=== PATIENT | male | born 2000 | race Two or more races ===

== ENCOUNTER 2024-08-27 10:24 | Emergency (ER) | payer MEDICAID, OTHER ==
[~2024-08-27] VITALS: Ht 185.4 cm; Wt 91.0 kg
[2024-08-27 12:15] VITALS: BP 122/81; PULSE 89; RESP 20; TEMP 98.9; O2SAT 99
--- NOTE | 2024-08-27 12:46 | ED.PDOC ---
Eye-HPI HPI Comments A 24 YEAR OLD MALE PRESENTS TO THE ED WITH COMPLAINT OF SORE THROAT AND LEFT EAR PAIN. PATIENT STATES HE HAS BEEN EXPERIENCING A SORE THROAT, LEFT EAR PAIN, COUGH, NASAL CONGESTION, AND BODY ACHES FOR THE PAST 5 DAYS. PATIENT DENIES SHORTNESS OF BREATH, CHEST PAIN, ABDOMINAL PAIN, NAUSEA, VOMITING, HEADACHE, OR OTHER COMPLAINTS. NO OTHER SYMPTOMS OR MODIFYING FACTORS AT THIS TIME. PATIENT IS ALERT, ORIENTED X 4, AND HAS STEADY GAIT. Chief Complaint: Flu like Time Seen by MD: 11:17 Primary Care Provider: LUNA Reviewed Notes: Nurses Notes, Medications, Allergies Allergies: Coded Allergies: NO KNOWN ALLERGIES (Unverified , 08/27/24) Home Meds Active Scripts Lidocaine HCl (Mouth-Throat) (Lidocaine HCl Viscous) 2 % Dianna, 5 ML MT TID, #100 ML Prov:KENDAL SUN 08/27/24 Amoxicillin Trihydrate (Amoxicillin) 875 Mg Tab, 1 TAB PO BID, #20 TAB Prov:KENDAL SUN 08/27/24 Information Source: Patient Mode of Arrival: Ambulatory Timing: Days Duration: Since onset, Days Prehospital treatment: None Quality: Pain, Red Lids: Normal Conjunctiva: Normal Cornea: Normal Pupils: Normal EOM: Normal Fundus: Normal Slit lamp exam: Normal Anterior chamber: Normal Mouth Location: Pharynx Mouth: Normal ENT Ear Exam: Normal, Red, Bulging, Normal Nose: Normal Sinuses: Normal Oropharynx: Tonsillar hypertrophy, Red Onset: Spontaneous Throat Exposed to: None History of: None Last Tetanus: Unknown Modifying factors: Nothing Associated signs and symptoms: Nasal Symptoms, Sore Throat, Ear Pain Past Medical History PAST MEDICAL HISTORY: Denies Surgical History: Denies all surgeries Family History Family History: Reviewed,noncontributory to illness Social History Smoker: Non-Smoker Alcohol: Denies ETOH Use Drugs: Denies Drug Use Lives In: Home Constitutional: denies: chills, diaphoresis, fatigue, fever, malaise, sweats, weakness, others EENTM: reports: ear pain (LEFT EAR PAIN), nose congestion, throat pain, throat swelling; denies: blurred vision, double vision, ear bleeding, ear discharge, ear drainage, ear ringing, eye pain, eye redness, hearing loss, mouth pain, mouth swelling, nasal discharge, nose bleeding, nose pain, photophobia, tearing, voice changes, others Respiratory: reports: cough; denies: hemoptysis, orthopnea, SOB at rest, shortness of breath, SOB with excertion, stridor, wheezing, others Cardiovascular: denies: chest pain, dizzy spells, diaphoresis, Dyspnea on exertion, edema, irregular heart beat, left arm pain, lightheadedness, palpitations, PND, syncope, others Gastrointestinal: denies: abdomen distended, abdominal pain, blood streaked bowels, constipated, diarrhea, dysphagia, difficulty swallowing, hematemesis, melena, nausea, poor appetite, poor fluid intake, rectal bleeding, rectal pain, vomiting, others Genitourinary: denies: burning, dysuria, flank pain, frequency, hematuria, incontinence, penile discharge, penile sore, pain, testicle pain, testicle swelling, urgency, others Neurological: denies: dizziness, fainting, headache, left sided numbness, left sided weakness, numbness, paresthesia, pre-existing deficit, right sided numbness, right sided weakness, seizure, speech problems, tingling, tremors, weakness, others Musculoskeletal: reports: muscle pain; denies: back pain, gout, joint pain, joint swelling, muscle stiffness, neck pain, others Integumetry: denies: bruises, change in color, change in hair/nails, dryness, laceration, lesions, lumps, rash, wounds, others Allergic/Immunocompromised: denies: Difficulty Healing, Frequent Infections, Hives, Itching, others Hematologic/Lymphatic: denies: anemia, blood clots, easy bleeding, easy bruising, swollen glands, others Endocrine: denies: excessive hunger, excessive sweating, excessive thirst, excessive urination, flushing, intolerance to cold, intolerance to heat, unexplained weight gain, unexplained weight loss, others Psychiatric: denies: anxiety, bipolar disorder, depression, hopeless, panic disorder, schizophrenia, sleepless, suicidal, others All Other Systems: Reviewed and Negative Physical Exam General Appearance: No Apparent Distress, Normal HEENT: PERRL/EOMI, Pharyngeal Erythema (TONSILLAR SWELLING, NO EXUDATES. ), TM Abnormal (L) (ERYTHEMA AND DULL OF LEFT TM, NO DRAINAGE AND BLOOD CLOTS. ) Neck: Full Range of Motion, Non-Tender, Normal, Normal Inspection Respiratory: Chest Non-Tender, Lungs Clear, No Accessory Muscle Use, No Respiratory Distress, Normal Breath Sounds Cardiovascular: No Edema, No JVD, No Murmur, No Gallop, Normal Peripheral Pulses, Regular Rate/Rhythm Breast Exam: Deferred Gastrointestinal: No Organomegaly, Non Tender, No Pulsatile Mass, Normal Bowel Sounds, Soft Genitalia: Deferred Pelvic: Deferred Rectal: Deferred Extremities: No calf tenderness, Normal capillary refill, Normal inspection, Normal range of motion, Non-tender, No pedal edema Musculoskeletal : Apperance: Normal Neurologic: Alert, 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 Was a procedure done?: No EENT DIFF Eye: N/A Ear: Cerumen Impaction, Otitis Externa, Otitis Media, Pharyngitis, Sinusitis Nose: N/A Mouth: N/A Sore Throat: Pharyngitis, Streptococcal, Viral Pharyngitis, URI X-Ray, Labs, Meds, VS Vital Signs Date Time Temp Pulse Resp B/P (MAP) Pulse Ox O2 Delivery O2 Flow Rate FiO2 08/27/24 12:15 98.9 89 20 122/81 (95) 99 98.9 08/27/24 12:15 89 20 99 Room Air 08/27/24 10:40 98.9 89 20 122/91 (101) 99 Current Medications Medications (Trade) Dose Ordered Sig/Maye Route Start Time Stop Time Status Last Admin Ceftriaxone Sodium (Rocephin) 1,000 mg ONCE ONCE IM 08/27/24 12:45 08/27/24 12:46 DC 08/27/24 12:54 X-Ray, Labs, Meds, VS Comment EXTERNAL MEDICAL RECORDS REVIEWED: [NONE] INDEPENDENT HISTORIANS: [NONE] SOCIAL DETERMINANTS OF HEALTH: [NONE] LABS ORDERED: NONE REVIEWED AND INTERPRETED RESULTS: NONE IMAGING ORDERED: NONE TREATMENTS ORDERED: ROCEPHIN 1 G IM PROCEDURES PERFORMED: NONE CRITICAL CARE TIME: NONE I HAVE DISCUSSED THE PATIENT WITH THE ATTENDING PHYSICIAN DR. DUGAN AND HE AGREES WITH THE PATIENT'S PLAN OF CARE AND DISPOSITION. BASED ON HISTORY OF PRESENT ILLNESS, AND PHYSICAL EXAM, PATIENT WILL BE DISCHARGED HOME. SHARED DECISION MAKING: PATIENT INSTRUCTED TO FOLLOW UP WITH PRIMARY CARE PROVIDER IN 1-2 DAYS FOR RE-EVALUATION OF SYMPTOMS. PATIENT VERBALIZES UNDERSTANDING TO RETURN TO ED FOR NEW OR WORSENING SYMPTOMS OR IF FOLLOW UP WITH PCP CANNOT BE OBTAINED. PATIENT FEELS COMFORTABLE GOING HOME AT THIS TIME. ALL QUESTIONS ADDRESSED AT TIME OF DISCHARGE. Time of 1ST Reevaluation: 13:03 Reevaluation 1ST: Improved Patient Education/Counseling: Diagnosis, Treatment, Need For Follow Up Family Education/Counseling: Diagnosis, Treatment, Need For Follow Up Medical Screening: No EMC Exist At This Time Departure 1 Departure Time of Disposition: 13:03 Impression: Primary Impression: Acute tonsillitis Qualified Codes: J03.90 - Acute tonsillitis, unspecified Additional Impression: Otitis media of left ear Qualified Codes: H65.192 - Other acute nonsuppurative otitis media, left ear Disposition: 01 HOME / SELF CARE / HOMELESS Condition: Stable Additional Instructions: FOLLOW-UP WITH PCP IN 1 TO 2 DAYS. TAKE MEDICATIONS PRESCRIBED. RETURN TO ED FOR ANY NEW OR WORSENING SYMPTOMS. e-Prescriptions Lidocaine HCl (Mouth-Throat) (Lidocaine HCl Viscous) 2 % Dianna 5 ML MT TID, #100 ML Prov: KENDAL SUN 08/27/24 Amoxicillin Trihydrate (Amoxicillin) 875 Mg Tab 1 TAB PO BID, #20 TAB Prov: KENDAL SUN 08/27/24 Discharged With: Self Critical Care Note Critical Care Time?: No Stability Stability form required: No I personally scribed for KENDAL SUN ([email or web address]) on 08/27/24 at 12:46. Electronically submitted by Jose Dean ([email or web address]). KENDAL SUN Aug 27, 2024 12:46
[2024-08-27] MEDS: cefTRIAXone SOD 1,000 MG VL IM ONE (12:54)
[2024-08-27] MEDS ORDERED: AMOX875T3 PO (12:59)
[2024-08-27] MEDS ORDERED: LIDO2SOL26 MT (12:59)
== END 2024-08-27 13:07 | disposition home or self-care (01) ==
LOC: ER 10:24
DX: J03.90 Acute tonsillitis, unspecified (principal); H66.92 Otitis media, unspecified, left ear; Z79.899 Other long term (current) drug therapy
CPT/HCPCS: 96372; 99283; J0696